=== PATIENT | female | born 1990 | race Two or more races ===

== ENCOUNTER 2018-01-28 12:55 | Emergency (ER) | payer MEDICAID, OTHER ==
[~2018-01-28] VITALS: Ht 162.6 cm; Wt 106.6 kg
[2018-01-28 14:13] VITALS: BP 126/85
[2018-01-28] MEDS: TETANUS-DIPTH-ACEL PERTUSSIS 0.5ML SYRG IM ONE (15:00)
[2018-01-28] MEDS: BACITRACIN TOP OINT 1 UD PKG TOP ONE (15:24)
[2018-01-28] MEDS: LIDOCAINE 1% (LOCAL ANESTH.) PF 5ml SDV ID ONE (15:24)
[2018-01-28] MEDS: LIDOCAINE 1% HCL (LOCAL ANESTH.) INJ 20ML MDV ID ONE (15:25)
[2018-01-28] MEDS: LET TOPICAL SOLN 5 ML TOP ONE (15:34)
== END 2018-01-28 15:50 | disposition home or self-care (01) ==
LOC: ER 12:55
DX: S61.212A Laceration without foreign body of right middle finger without damage to nail, initial encounter (principal); W45.8XXA Other foreign body or object entering through skin, initial encounter; Y93.89 Activity, other specified; Y99.8 Other external cause status; Y92.89 Other specified places as the place of occurrence of the external cause
CPT/HCPCS: 12001; 90471; 90715; 99283; J3490